=== PATIENT | male | born 1955 | race Caucasian/White ===

== ENCOUNTER 2019-05-09 16:32 | Emergency (ER) | payer OTHER ==
[~2019-05-09] VITALS: Ht 182.9 cm; Wt 85.0 kg
[2019-05-09] MEDS ORDERED: GLYB25TA PO (16:37)
[2019-05-09] MEDS ORDERED: METF10004 PO (16:37)
[2019-05-09] MEDS ORDERED: NS 1,000 ML IV ONE ×2 (17:00→18:45)
[2019-05-09 17:46] LABS: BASO % 0.5 % (0.0-1.0); EOS # 0.3 10^3/uL (0.0-0.5); HEMATOCRIT 37.7 % (42.0-52.0); LYMPH # 0.9 10^3/uL (1.5-5.0); LYMPH % 11.1 % (24.0-44.0); MEAN CORPUSCULAR HGB CONC 34.5 g/dl (32.0-36.5); MEAN CORPUSCULAR VOLUME 86.9 fl (80.0-96.0); MONO # 0.5 10^3/uL (0.0-0.8); NEUTROPHILS # 6.5 10^3/uL (1.5-8.5); NEUTROPHILS % 78.4 % (36.0-66.0); PLATELET COUNT, AUTOMATED 245 10^3/uL (150-450); RED BLOOD COUNT 4.34 10^6/uL (4.30-6.10); WHITE BLOOD COUNT 8.2 10^3/uL (4.0-10.0)
[2019-05-09 18:11] LABS: ALBUMIN 2.7 GM/DL (3.2-5.2); ALT/SGPT 19 U/L (12-78); BILIRUBIN,DIRECT 0.2 MG/DL (0.0-0.2); BILIRUBIN,TOTAL 0.4 MG/DL (0.2-1.0); LIPASE 194 U/L (73-393); TOTAL PROTEIN 5.9 GM/DL (6.4-8.2)
[2019-05-09 18:23] LABS: ERYTHROCYTE SEDIMENTATION RATE 60 mm/hr (0-20)
--- NOTE | 2019-05-09 18:46 | REP ---
RIGHT ANKLE, FOUR VIEWS: Four views of the right ankle performed. There is no fracture, dislocation or intrinsic bone disease. The ankle mortise is anatomic. There is mild inferior calcaneus spurring. Scattered vascular calcifications are seen in the soft tissues. IMPRESSION: Mild calcaneal spurring. No fracture or dislocation. Electronically Signed by Mahesh Soto MD 05/10/2019 09:03 A
[2019-05-09] MEDS ORDERED: ASPI81TA85 PO (18:53)
[2019-05-09] MEDS ORDERED: HumuLIN R (REGULAR) INSULIN (NovoLIN R) **100U/ML** PER UNIT IV ONE (19:00)
[2019-05-09 19:02] LABS: RHEUMATOID FACTOR QUANT < 10.0 IU/ML (<15.0)
--- NOTE | 2019-05-09 20:36 | REPVR ---
PROCEDURE INFORMATION: Exam: US Duplex Right Lower Extremity Veins, Limited Exam date and time: 05/09/2019 7:48 PM Clinical history: 63 years old, male; Pain; Leg, lower; Right; Additional info: Swelling TECHNIQUE: Imaging protocol: Real-time Duplex ultrasound of the Right Lower Extremity with 2-D vo scale, color Doppler flow and spectral waveform analysis with image documentation. Limited exam was focused on the right lower extremity veins. COMPARISON: No relevant prior studies available. FINDINGS: Right deep veins: Unremarkable. The common femoral, femoral, proximal profunda femoral and popliteal veins are patent without thrombus. Normal Doppler waveforms. Normal compressibility and/or augmentation response. Right superficial veins: Unremarkable. Saphenofemoral junction is patent without thrombus. Soft tissues: Unremarkable. IMPRESSION: No acute findings. No evidence of deep vein thrombosis. Electronically signed by: Markie Gaines On 05/09/2019 20:36:03 PM
--- NOTE | 2019-05-09 20:51 | ECGEPIP ---
[facility] - ED Test Date: 2019-05-09 Pat Name: RONNY BENTON Department: Room: - Gender: Male Mobile Sales Consultant: VANESA : 1955 Requested By: Brooke Rodriguez Order Number: [id number] Reading MD: Brooke Rodriguez Measurements Intervals [place] Rate: 79 P: 57 DC: 146 QRS: 47 QRSD: 106 T: 42 QT: 392 QTc: 451 Interpretive Statements SINUS RHYTHM NO PRIOR Electronically Signed on 05-09-2019 20:51:18 EDT by Brooke Rodriguez
[2019-05-09 21:15] VITALS: BP 168/97
[2019-05-12 00:06] LABS: ANTINUCLEAR ANTIBODIES DIRECT Negative (Negative); Lyme Disease IgG/IgM Antibodie <0.91 ISR (0.00-0.90); Lyme Disease IgM Ab Quantitati <0.80 index (0.00-0.79)
== END 2019-05-09 21:43 | disposition home or self-care (01) ==
LOC: M ED 16:32
DX: E11.65 Type 2 diabetes mellitus with hyperglycemia (principal); M25.471 Effusion, right ankle; M54.9 Dorsalgia, unspecified; G89.29 Other chronic pain; Z79.84 Long term (current) use of oral hypoglycemic drugs